=== PATIENT | female | born 1930 | race African-American/Black ===

== ENCOUNTER 2018-06-17 11:54 | Day surgery (SDC) | payer OTHER ==
--- NOTE | 2018-06-17 12:18 | PDOC ---
History of Present Illness - History of Present Illness Initial Comments: 06/17/18 13:28 The patient is an 88 year old female with a significant past medical history of NIDDM, HTN, HLD, Anemia, Osteoarthritis, NSTEMI and sebaceous cyst presenting from [facility] for surgical removal of a Left axillary sebaceous cyst with Dr. Stroud. She denies any pain or skin changes. No fevers or chills. Allergies: NKDA PCP - Dr. Teran ROS: General/Constitutional: no fevers or chills. No weakness/sweats. HEENT: no headache or dizziness. No congestion. CVS: no chest pain, palpitations or syncope. Resp: no SOB, wheezing or hemoptysis. No cough. Gastrointestinal: no abdominal pain, nausea or vomiting or diarrhea. Genitourinary: no urinary sx, hematuria, urgency or frequency. MUSCULOSKELETAL: No joint pain and swelling. No neck or back pain. SKIN: (+) Left axillary sebaceous cyst. no redness or skin changes, no discharge, no rash. No wounds. HEMATOLOGIC/LYMPHATIC: No anemia, easy bruising/bleeding, or history of blood clots. NEUROLOGIC: No headache, dizziness, LOC or altered mental status. No weakness, numbness or tingling. Allergic/Immunologic: no allergies PE: General: Well appearing, awake and alert, NAD. HEENT: NCAT, PERRL, EOMI, clear conjunctiva, anicteric, moist mucous membranes , clear oropharynx, no oral lesions.. Neck: neck supple, FROM Resp: CTAB, normal and even respirations, no respiratory distress CVS: (+) soft holosystolic murmur. RRR,, 2+ peripheral pulses throughout, no peripheral edema Abdomen: soft, NTND, no rebound or guarding. No CVAT. Back: nontender, normal inspection and ROM MSK: no edema, GONZALEZ x4, ROM intact. No clubbing or cyanosis. normal bulk and tone. Neuro: alert, oriented appropriately; no focal neurologic deficits Skin: (+) Left axillary firmness with palpable mass. Nontender. No skin changes. warm and well perfused, cap refill <2 sec, normal color <Renae Hauser - Last Filed: 06/17/18 13:28> - General History Source: Patient, Family Exam Limitations: No Limitations <Hellen Cabezas - Last Filed: 06/17/18 13:43> - General Chief Complaint: Abscess Boil Stated Complaint: CYST REMOVAL Time Seen by Provider: 06/17/18 12:05 Past History <MurtazaTseringRenae - Last Filed: 06/17/18 13:28> - Past Medical History COPD: No CHF: Yes Diabetes: Yes HTN: Yes Hypercholesterolemia: Yes - Immunization History Immunization Up to Date: Yes - Suicide/Smoking/Psychosocial Hx Smoking History: Never smoked Have you smoked in the past 12 months: No Hx Alcohol Use: No Drug/Substance Use Hx: No <Hellen Cabezas - Last Filed: 06/17/18 13:43> - Past Medical History Allergies/Adverse Reactions: Allergies Allergy/AdvReac Type Severity Reaction Status Date / Time No Known Allergies Allergy Verified 12/12/17 01:08 Home Medications: Ambulatory Orders Acetaminophen [Tylenol .Extra-Strength -] 1,000 mg PO Q6H PRN 12/12/17 Hydrochlorothiazide [Hctz -] 12.5 mg PO DAILY 12/12/17 Latanoprost 0.005% Eye Drops [Xalatan 0.005% Eye Drops -] 1 drop OU HS 12/12/17 Multivit-Min/Iron Fum/Folic AC [Ygubi-Wvqyifr-Ajxqgcki Tablet] 1 tab PO DAILY Vit A/Vitamin D3/E/Aloe V/Zinc [Periguard Ointment] 100 gm TP HS 12/12/17 metFORMIN HCL [Metformin HCl] 500 mg PO DAILY 12/12/17 Aspirin Coated [Ecotrin -] 81 mg PO DAILY 30 Days #30 tablet.ec 12/17/17 Atorvastatin Ca [Lipitor] 40 mg PO HS 30 Days #30 tablet 12/17/17 Clopidogrel Bisulfate [Plavix -] 75 mg PO DAILY 30 Days #30 tablet 12/17/17 Docusate Sodium [Colace -] 100 mg PO BID PRN 30 Days #60 capsule 12/17/17 Isosorbide Mononitrate [Imdur -] 30 mg PO DAILY 30 Days #30 tab.sr.24h 12/17/17 Losartan Potassium [Cozaar -] 100 mg PO HS 30 Days #60 tablet 12/17/17 Metoprolol Tartrate [Lopressor -] 25 mg PO BID 30 Days #60 tablet 12/17/17 Polyethylene Glycol 3350 [Miralax 119 gm Btl -] 17 gm PO BID #1 bottle 12/17/17 *Physical Exam - Vital Signs Last Vital Signs Temp Pulse Resp BP Pulse Ox 98.0 F 68 18 197/65 H 100 06/17/18 11:59 06/17/18 11:59 06/17/18 11:59 06/17/18 11:59 06/17/18 11:59 <Renae Hauser - Last Filed: 06/17/18 13:28> - Vital Signs Last Vital Signs Temp Pulse Resp BP Pulse Ox 98.0 F 68 18 197/65 H 100 06/17/18 11:59 06/17/18 11:59 06/17/18 11:59 06/17/18 11:59 06/17/18 11:59 <Hellen Cabezas - Last Filed: 06/17/18 13:43> Moderate Sedation - Procedure Monitoring Vital Signs: Procedure Monitoring Vital Signs Temperature 98.0 F 06/17/18 11:59 Pulse Rate 68 06/17/18 11:59 Respiratory Rate 18 06/17/18 11:59 Blood Pressure 197/65 H 06/17/18 11:59 O2 Sat by Pulse Oximetry (%) 100 06/17/18 11:59 <Renae Hauser - Last Filed: 06/17/18 13:28> - Procedure Monitoring Vital Signs: Procedure Monitoring Vital Signs Temperature 98.0 F 06/17/18 11:59 Pulse Rate 68 06/17/18 11:59 Respiratory Rate 18 06/17/18 11:59 Blood Pressure 197/65 H 06/17/18 11:59 O2 Sat by Pulse Oximetry (%) 100 06/17/18 11:59 <Hellen Cabezas - Last Filed: 06/17/18 13:43> ED Treatment Course - LABORATORY CBC & Chemistry Diagram: 06/17/18 12:22 06/17/18 12:22 - ADDITIONAL ORDERS Additional order review: 06/17/18 12:22 RBC 4.60 MCV 88.5 MCHC 33.4 RDW 15.4 MPV 9.2 Neutrophils % 52.9 Lymphocytes % 34.6 Monocytes % 9.1 Eosinophils % 2.3 Basophils % 1.1 <Renae Hauser - Last Filed: 06/17/18 13:28> - LABORATORY CBC & Chemistry Diagram: 06/17/18 12:22 06/17/18 12:22 <Hellen Cabezas - Last Filed: 06/17/18 13:43> Medical Decision Making - Medical Decision Making 06/17/18 12:47 Dr. Stroud was paged at this time. awaiting call back. <Renae Hauser - Last Filed: 06/17/18 13:28> - Medical Decision Making Spoke with surgeon Dr. Stroud, will admit to [facility] for surgical excision of her sebaceous cyst and likely discharge home afterwards. Basic preoperative labs, type and screen are ordered, EKG ordered without hyperacute T waves or changes to suggest real hyperkalemia, so likely K 5.6 hemolysis, pt not symptomatic.. No Abnormalities were noted. admit to OR for surgical management. 06/17/18 13:41 06/17/18 13:43 <Hellen Cabezas - Last Filed: 06/17/18 13:43> *DC/Admit/Observation/Transfer - Attestations Scribe Attestion: 06/17/18 13:28 Documentation prepared by Renae Hauser, acting as medical transcription editor for Hellen Cabezas MD <Renae Hauser - Last Filed: 06/17/18 13:28> - Discharge Dispostion Decision to Admit order: Yes Decision to Admit order Date/Time: 06/17/18 13:41 Decision to Admit Order Category Date Time Status Decision to Admit to Hospital Routine Admission 06/17/18 13:40 Ordered <Hellen Cabezas - Last Filed: 06/17/18 13:43> Diagnosis at time of Disposition: Sebaceous cyst of left axilla - Discharge Dispostion Condition at time of disposition: Good
[2018-06-17 12:36] LABS: BASO % 1.1 % (0-2.0); EOS % 2.3 % (0-4.5); HEMATOCRIT 40.7 % (32.4-45.2); HEMOGLOBIN 13.6 GM/dL (10.7-15.3); LYMPH % 34.6 % (8-40); MCH 29.5 pg (25.7-33.7); MCHC 33.4 g/dl (32.0-36.0); MEAN CELL VOLUME 88.5 fl (80-96); MEAN PLT VOLUME 9.2 fl (7.5-11.1); MONO % 9.1 % (3.8-10.2); NEUT % 52.9 % (42.8-82.8); PLATELET COUNT 170 K/MM3 (134-434); RDW 15.4 % (11.6-15.6); WHITE BLOOD COUNT 5.6 K/mm3 (4.0-10.0)
[2018-06-17 12:52] LABS: INR 0.99 (0.83-1.09); PROTHROMBIN TIME (PATIENT) 11.7 SEC (9.7-13.0)
[2018-06-17] MEDS ORDERED: LACTATED RINGERS SOLUTION 1,000 ML IV SCH (13:00)
--- NOTE | 2018-06-17 13:03 | HP ---
Admitting History and Physical - Admission Chief Complaint: left armpit cyst History of Present Illness: 88yo female MMP presented from [facility] with a left armpit sebaceous cyst of the left axilla. She has pain and fevers. She and an I&D in wound care at the same site oen month ago. We were asked to assess. History Source: Patient, Family Member, Medical Record Limitations to Obtaining History: No Limitations - Smoking History Smoking history: Never smoked Have you smoked in the past 12 months: No - Alcohol/Substance Use Hx Alcohol Use: No History of Substance Use: reports: None - Social History Usual Living Arrangement: Yes: Assisted Living ADL: Support Services History of Recent Travel: No Home Medications - Allergies Allergies/Adverse Reactions: Allergies Allergy/AdvReac Type Severity Reaction Status Date / Time No Known Allergies Allergy Verified 12/12/17 01:08 - Home Medications Home Medications: Ambulatory Orders Acetaminophen [Tylenol .Extra-Strength -] 1,000 mg PO Q6H PRN 12/12/17 Hydrochlorothiazide [Hctz -] 12.5 mg PO DAILY 12/12/17 Latanoprost 0.005% Eye Drops [Xalatan 0.005% Eye Drops -] 1 drop OU HS 12/12/17 Multivit-Min/Iron Fum/Folic AC [Nhrku-Aqgoifz-Azhetryw Tablet] 1 tab PO DAILY Vit A/Vitamin D3/E/Aloe V/Zinc [Periguard Ointment] 100 gm TP HS 12/12/17 metFORMIN HCL [Metformin HCl] 500 mg PO DAILY 12/12/17 Aspirin Coated [Ecotrin -] 81 mg PO DAILY 30 Days #30 tablet.ec 12/17/17 Atorvastatin Ca [Lipitor] 40 mg PO HS 30 Days #30 tablet 12/17/17 Clopidogrel Bisulfate [Plavix -] 75 mg PO DAILY 30 Days #30 tablet 12/17/17 Docusate Sodium [Colace -] 100 mg PO BID PRN 30 Days #60 capsule 12/17/17 Isosorbide Mononitrate [Imdur -] 30 mg PO DAILY 30 Days #30 tab.sr.24h 12/17/17 Losartan Potassium [Cozaar -] 100 mg PO HS 30 Days #60 tablet 12/17/17 Metoprolol Tartrate [Lopressor -] 25 mg PO BID 30 Days #60 tablet 12/17/17 Polyethylene Glycol 3350 [Miralax 119 gm Btl -] 17 gm PO BID #1 bottle 12/17/17 Review of Systems - Review of Systems Constitutional: denies: Chills, Fever Eyes: denies: Blind Spots, Blurred Vision HENT: denies: Difficult Swallowing, Ear Discharge Neck: denies: Decreased ROM, Lumps Cardiovascular: denies: Chest Pain, Palpitations Respiratory: denies: Cough, SOB Gastrointestinal: denies: Abdominal Pain, Bloating, Constipation Genitourinary: denies: Burning, Discharge, Dysuria Breasts: reports: No Symptoms Reported. denies: Pain Musculoskeletal: denies: Back Pain, Joint Pain, Joint Swelling Integumentary: denies: Bruising, Change in Color, Lesions, Lump Neurological: denies: Seizure, Syncope Endocrine: denies: Unexplained Weight Gain, Unexplained Weight Loss Hematology/Lymphatic: denies: Easily Bruised, Excessive Bleeding Psychiatric: denies: Anxiety, Depression Physical Examination Vital Signs: Vital Signs Temperature 98.0 F 06/17/18 11:59 Pulse Rate 68 06/17/18 11:59 Respiratory Rate 18 06/17/18 11:59 Blood Pressure 197/65 H 06/17/18 11:59 O2 Sat by Pulse Oximetry (%) 100 06/17/18 11:59 Vital Signs Period Temp Pulse Resp BP Sys/Kay Pulse Ox Last 24 Hr 97.7 F-98.0 F 66-68 18-18 190-197/65-72 100 Constitutional: Yes: Well Nourished, No Distress, Calm Eyes: Yes: Conjunctiva Clear, EOM Intact HENT: Yes: Atraumatic, Normocephalic Neck: Yes: Supple, Trachea Midline Cardiovascular: Yes: Regular Rate and Rhythm, S1, S2 Respiratory: Yes: Regular, CTA Bilaterally Gastrointestinal: Yes: Normal Bowel Sounds, Soft, Tenderness ...Rectal Exam: Yes: Deferred. No: Erythema, Guaiac Positive Renal/: No: CVA Tenderness - Left, CVA Tenderness - Right Breast(s): No: Breast Implants, Gynecomastia, Nipple Inversion Extremities: No: Cool, Cyanosis Edema: No Peripheral Pulses WNL: Yes Peripheral Pulses: Left Radial: 2+, Right Radial: 2+, Left Doralis Pedis: 2+, Right Dorsalis Pedis: 2+, Left Femoral: 2+, Right Femoral: 2+ Wound/Incision: Yes: Clean/Dry, Well Approximated, Reddened (left axilla). No: Draining Neurological: Yes: Alert, Oriented Psychiatric: Yes: Alert, Oriented Labs: CBC, BMP 06/17/18 12:22 Problem List - Problems (1) Sebaceous cyst of left axilla Assessment/Plan: 88yo female with left armpit infected cyst NPO and IVF IV antibiotics Re-excsion of infected cyst left armpit Discussed with patient risks, benefits and alternatives of the aformention procedure. including but not limited to bleeding, infection, injury to adjacent structures, need for further procedures, ; alternatives include antibiotics , delayed or no surgery - risks of this include failure of nonoperative therapy , perforation, sepsis, recurrence, . Patient desires to proceed with operation - will take to OR for above. Informed consent signed for same. Code(s): L72.3 - SEBACEOUS CYST (2) NSTEMI (non-ST elevated myocardial infarction) Code(s): I21.4 - NON-ST ELEVATION (NSTEMI) MYOCARDIAL INFARCTION (3) CKD (chronic kidney disease) Code(s): N18.9 - CHRONIC KIDNEY DISEASE, UNSPECIFIED (4) Dyslipidemia Code(s): E78.5 - HYPERLIPIDEMIA, UNSPECIFIED (5) HTN (hypertension) Code(s): I10 - ESSENTIAL (PRIMARY) HYPERTENSION (6) Osteoporosis Code(s): M81.0 - AGE-RELATED OSTEOPOROSIS W/O CURRENT PATHOLOGICAL FRACTURE
--- NOTE | 2018-06-17 13:03 | OP ---
Operative Note - Note: Operative Date: 06/17/18 Pre-Operative Diagnosis: inefected cyst left armpit Operation: excision of left armpit cyst Findings: sebaceous cyst capsule Post-Operative Diagnosis: Same as Pre-op Surgeon: Jacob Stroud Anesthesiologist/DIRECTOR CLIENT: Ye Sparks Anesthesia: Local (1% lidocaine with epineprine ), MAC Specimens Removed: cyst capsule Estimated Blood Loss (mls): 5 Fluid Volume Replaced (mls): 300 Operative Report Dictated: Yes
[2018-06-17 13:06] LABS: ANION GAP 6 MMOL/L (8-16); BLOOD UREA NITROGEN 28 mg/dL (7-18); CALCIUM 9.7 mg/dL (8.5-10.1); CHLORIDE 107 mmol/L (98-107); CO2 28 mmol/L (21-32); CREATININE 0.9 mg/dL (0.55-1.3); GLUCOSE,RANDOM 86 mg/dL (74-106); POTASSIUM 5.6 mmol/L (3.5-5.1); SODIUM 141 mmol/L (136-145)
--- NOTE | 2018-06-17 13:58 | DS ---
Physical Examination Vital Signs: Vital Signs Temperature 98.0 F 06/17/18 11:59 Pulse Rate 68 06/17/18 11:59 Respiratory Rate 18 06/17/18 11:59 Blood Pressure 197/65 H 06/17/18 11:59 O2 Sat by Pulse Oximetry (%) 100 06/17/18 11:59 Findings/Remarks: stable post opertively. tolerating diet. Constitutional: Yes: Well Nourished, No Distress, Calm Eyes: Yes: Conjunctiva Clear, EOM Intact HENT: Yes: Atraumatic, Normocephalic Neck: Yes: Supple, Trachea Midline Cardiovascular: Yes: Regular Rate and Rhythm, S1, S2 Respiratory: Yes: Regular, CTA Bilaterally Gastrointestinal: Yes: Normal Bowel Sounds, Soft. No: Tenderness ...Rectal Exam: Yes: Deferred Renal/: No: CVA Tenderness - Left, CVA Tenderness - Right Breast(s): No: Breast Implants, Discharge from Nipple, Gynecomastia Musculoskeletal: No: Muscle Pain, Muscle Weakness Extremities: No: Cool, Cyanosis Edema: No Peripheral Pulses WNL: Yes Peripheral Pulses: Left Radial: 2+, Right Radial: 2+, Left Doralis Pedis: 2+, Right Dorsalis Pedis: 2+, Left Femoral: 2+, Right Femoral: 2+ Integumentary: No: Incision, Jaundice Wound/Incision: Yes: Clean/Dry, Well Approximated, Sutures Intact, Dressing Dry and Intact Neurological: Yes: Alert, Oriented Psychiatric: Yes: Alert, Oriented Labs: CBC, BMP 06/17/18 12:22 06/17/18 12:22 Discharge Summary Reason For Visit: SEBACEOUS CYST OF LEFT AXILLA Current Active Problems Sebaceous cyst of left axilla (Acute) Procedures: Principal: left armpit cyst Other Procedures: excision of left arm pit cyst Hospital Course: admitted for an ambulatory surgery. uneventful procedure. stable for discharge home. Condition: Improved - Instructions Diet, Activity, Other Instructions: Postoperative instructions: You had a excision of epidermal cyst on 06/17/[address] Jacob Toure of [facility]. Activity: Resume your usual activities gradually, but no heavy exertion or lifting more than 10-15 pounds for 4-6 weeks. Remove dressings 48 hours after surgery, if they are not already off. You may shower daily starting then, just pat the incision areas dry. No bath or swimming until skin incisions have healed. Trimble should not need to be recovered with any dressings, unless you have been told otherwise. Eat lightly at first, but advance to your usual diet as tolerated. Pain: For pain, you may use and alternate Tylenol (acetaminophen) 1-2 pills and/ or ibuprofen 200 mg (1-3 pills) every 6 hours each as needed; this means that you can take one OR the other at 3-hour intervals. If you are prescribed a Tylenol/narcotic combination for severe pain, use it instead of plain Tylenol as needed and switch back when your pain starts decreasing. Do not take more than 4000 mg of acetaminophen in a day. Take medications as prescribed or indicated on the labeling. Follow-up: Call Dr. Stroud' office at [phone] to make your postop appointment (Friday in approximately 2 weeks after surgery as advised). Clinic is held in the Diagnostic [facility] on the first floor of [facility]. Call the office if you have: * increasing pain not responsive to pain medication * fever of 101F or higher * vomiting * unusual or increasing bleeding or drainage from wounds * increasing redness or swelling at wound sites * inability to urinate Also, see your primary medical doctor within 1-2 weeks. Disposition: HOME - Home Medications Comprehensive Discharge Medication List: Ambulatory Orders Acetaminophen [Tylenol .Extra-Strength -] 1,000 mg PO Q6H PRN 12/12/17 Hydrochlorothiazide [Hctz -] 12.5 mg PO DAILY 12/12/17 Latanoprost 0.005% Eye Drops [Xalatan 0.005% Eye Drops -] 1 drop OU HS 12/12/17 Multivit-Min/Iron Fum/Folic AC [Pvlrd-Nwofwey-Boodswyw Tablet] 1 tab PO DAILY Vit A/Vitamin D3/E/Aloe V/Zinc [Periguard Ointment] 100 gm TP HS 12/12/17 metFORMIN HCL [Metformin HCl] 500 mg PO DAILY 12/12/17 Aspirin Coated [Ecotrin -] 81 mg PO DAILY 30 Days #30 tablet.ec 12/17/17 Atorvastatin Ca [Lipitor] 40 mg PO HS 30 Days #30 tablet 12/17/17 Clopidogrel Bisulfate [Plavix -] 75 mg PO DAILY 30 Days #30 tablet 12/17/17 Docusate Sodium [Colace -] 100 mg PO BID PRN 30 Days #60 capsule 12/17/17 Isosorbide Mononitrate [Imdur -] 30 mg PO DAILY 30 Days #30 tab.sr.24h 12/17/17 Losartan Potassium [Cozaar -] 100 mg PO HS 30 Days #60 tablet 12/17/17 Metoprolol Tartrate [Lopressor -] 25 mg PO BID 30 Days #60 tablet 12/17/17 Polyethylene Glycol 3350 [Miralax 119 gm Btl -] 17 gm PO BID #1 bottle 12/17/17
[2018-06-17 16:05] VITALS: BMI 22.6
[2018-06-17 17:13] LABS: HEMATOCRIT 38.1 % (32.4-45.2); HEMOGLOBIN 12.8 GM/dL (10.7-15.3); MCH 29.9 pg (25.7-33.7); MCHC 33.6 g/dl (32.0-36.0); MEAN CELL VOLUME 89.1 fl (80-96); RBC 4.28 M/mm3 (3.60-5.2); RDW 15.3 % (11.6-15.6); WHITE BLOOD COUNT 5.9 K/mm3 (4.0-10.0)
[2018-06-17 17:49] LABS: ALBUMIN 3.5 g/dl (3.4-5.0); ALK PHOS 72 U/L (45-117); ANION GAP 6 MMOL/L (8-16); BILIRUBIN,TOTAL 0.6 mg/dL (0.2-1); BLOOD UREA NITROGEN 27 mg/dL (7-18); CALCIUM 9.5 mg/dL (8.5-10.1); CHLORIDE 107 mmol/L (98-107); CO2 29 mmol/L (21-32); CREATININE 0.8 mg/dL (0.55-1.3); GLUCOSE,RANDOM 80 mg/dL (74-106); SGPT/ALT 15 U/L (13-61); SODIUM 142 mmol/L (136-145); TOT PROT 6.9 g/dl (6.4-8.2)
[2018-06-17 17:50] LABS: POTASSIUM 4.5 mmol/L (3.5-5.1); SGOT/AST 18 U/L (15-37)
[2018-06-17] MEDS ORDERED: ceFAZolin SODIUM 1 GM VIAL IVPB ONE (18:00)
[2018-06-17] MEDS ORDERED: PROPOFOL 20 ML ONE (18:07)
[2018-06-17] MEDS ORDERED: LIDOCAINE HCL/PF 2% SDV 5ML VIAL ONE (18:08)
[2018-06-17] MEDS ORDERED: LIDOCAINE 1%-EPI 1:100,000 30 ML MDV IJ ONE (18:08)
[2018-06-17] MEDS ORDERED: ceFAZolin SODIUM 1 GM VIAL ONE (18:12)
[2018-06-17] MEDS ORDERED: LIDOCAINE 1%/EPI 1:100000 (20 ML MULTI DOSE VIAL) IJ ONE (18:25)
--- NOTE | 2018-06-18 02:33 | EKG ---
Test Reason : Blood Pressure : / mmHG Vent. Rate : 058 BPM Atrial Rate : 058 BPM P-R Int : 130 ms QRS Dur : 122 ms QT Int : 426 ms P-R-T Axes : 068 -21 148 degrees QTc Int : 418 ms SINUS BRADYCARDIA POSSIBLE LEFT ATRIAL ENLARGEMENT LEFT VENTRICULAR HYPERTROPHY WITH QRS WIDENING AND REPOLARIZATION ABNORMALITY ABNORMAL ECG WHEN COMPARED WITH ECG OF 14-DEC-2017 12:13, VENT. RATE HAS DECREASED BY [address] NO LONGER DEPRESSED IN INFERIOR LEADS T WAVE INVERSION NOW EVIDENT IN ANTERIOR LEADS QT HAS SHORTENED Confirmed by MAXINE SEPULVEDA, MANAS ([id number]) on 06/18/2018 2:33:11 AM Referred By: Confirmed By:MANAS GOODMAN MD
[2018-06-18 10:04] VITALS: BP 148/67; PULSE 69; TEMP 98.8
--- NOTE | 2018-06-19 00:19 | OP ---
DATE OF OPERATION: 06/17/2018 PREOPERATIVE DIAGNOSIS: Infected left armpit cyst, epidermal cyst. POSTOPERATIVE DIAGNOSIS: Infected left armpit cyst, epidermal cyst. PROCEDURE: Excision of left armpit epidermal cyst. ATTENDING SURGEON: Jacob Stroud MD PROFESSOR OF PHYSICS: None. ANESTHESIOLOGIST: Ye Sparks MD ANESTHESIA TYPE: MAC and local. Local consisted of 1% lidocaine with epinephrine. A total of 10 mL was given in the area block fashion. ESTIMATED BLOOD LOSS: 5 mL. INTRAVENOUS FLUID REPLACED INTROPERATIVE: 300 mL SPECIMEN: Cyst capsule. FINDINGS: There was an infected epidermal inclusion cyst capsule, which was partially drained. INDICATIONS: Patient is an 88-year-old female presenting from [facility] with an infected epidermal inclusion cyst, which was incised and drained [facility] approximately 3 weeks earlier. She had surrounding erythema, tenderness to touch. She was sent to the emergency room from clinic for preoperative workup and evaluation for emergent excision of the cyst. She was counseled regarding the risks, benefits, and alternatives. She was accompanied by her daughter. She signed informed consent. She was taken to the procedure. DESCRIPTION OF PROCEDURE: Patient was brought to the operating room and placed in the supine position on the operating table. The lower extremities had SCDs placed to compression. The patient was induced with sedation. She was provided supplemental oxygen. She received intravenous antibiotics prior to the start of surgery in the form of Ancef 1 g. We proceeded first with the left axilla exposed and the patient's arm secured and padded. We began first with clip, prep, and drape in the standard surgical fashion, at which point we began first with an elliptical incision scribed on the skin at the site of the punctum from the previous incision and drainage site. This was scribed with a marker. A formal timeout was completed, identifying the operative site and procedure, at which point with all parties in agreement, we began with the incision with a 15-blade scalpel. It was deepened and widened with a needle-tip Bovie to healthy fat adjacent to the cyst capsule. It was retracted away with an Allis and then dissected at all aspects until clean fat could be visualized circumferentially. The specimen was passed off of the field for pathologic diagnosis and confirmation. The site was irrigated with a half-liter of sterile saline irrigation, at which point the space was ablated using a 2-0 Vicryl to approximate the fatty connective tissue. With the edges approximated and the crater clean, the skin edges were approximated using a 4-0 Vicryl in a running subcuticular fashion. The skin was cleaned. Absorbant dressing of gauze and tape was applied. Patient was awoken from anesthesia, having tolerated the procedure well. Counts were correct. She was given instructions to follow up in a period of 1 week. MD LIANA Colvin/[id number]
--- NOTE | 2018-06-19 18:27 | PATH ---
Surgical Pathology Report Patient Name: JAMAICA ALMONTE [facility]. Rec. #: [id number] /Age/Gender: 1930 (Age: 88) / F Account: [id number] Location: AMBULATORY SURG Taken: 06/17/2018 Received: 06/18/2018 Reported: 06/19/2018 Physicians: Jacob Stroud M.D. Specimen(s) Received AXILLARY CYST Clinical History Sebaceous cyst left axilla Final Diagnosis AXILLARY CYST, EXCISION: CONSISTENT WITH FRAGMENTS OF EPIDERMAL INCLUSION CYST. Electronically Signed Amanda Austin M.D. Gross Description Received in formalin labeled "axillary cyst," is a 2.7 x 1.7 x 0.5 cm aggregate of multiple rodriguez marshall soft tissue fragments, consistent with a disrupted cyst and cyst contents. Sole Polisher sections are submitted in one cassette. /06/18/2018 saudi/06/18/2018
== END 2018-06-18 11:17 ==
LOC: JOR 11:54 → JER 11:54 → JASUSAT 13:40 → J8W 15:22 → JASUSAT 06-18 11:17
PROC: 0HB5XZZ Excision of Chest Skin, External Approach (ICD-10-PCS; principal; 2018-06-17 15:00)
DX: L72.0 Epidermal cyst (principal); I10 Essential (primary) hypertension; E11.9 Type 2 diabetes mellitus without complications; Z79.84 Long term (current) use of oral hypoglycemic drugs
CPT/HCPCS: 36415; 80048; 80053; 85025; 85027; 85610; 85730; 86850; 86900; 86901; 88304-TC; 93005; 93010; 94760; 99285-25